=== PATIENT | male | born 1995 | race Caucasian/White ===

== ENCOUNTER 2024-10-09 08:48 | Emergency (ER) | payer BC, OTHER ==
[2024-10-09 09:05] VITALS: TEMP 97.9
--- NOTE | 2024-10-09 09:18 | ERPHSYRPT ---
- History of Present Illness Time Seen by Provider: 10/09/24 09:18 Source: patient Exam Limitations: no limitations Patient Subjective Stated Complaint: C/O right shoulder pain/injury. States he was working out approx one week ago and heard and felt something pop. States a ttempted to go to the walk in ortho clinic this am but it is closed. Triage Nursing Assessment: Patient ambulated back to ER without difficulties. He is alert and oriented. No SOB. Skin tone normal. Did not range due to pain when lifting arm. Physician History: This is a right-handed 29-year-old white male patient who presents to the emergency department with complaint of right shoulder pain. Approximately 1 week ago he was using the benchpress and had a little heavier weight than typical for him when he was working out. He felt a pop. In the next several days has had pain in the right shoulder area. He was having trouble raising his right arm. That is a little better but he still has a discomfort. Patient has no known drug allergies and he takes no medications chronically. Method of Injury: sports injury Quality: aching Severity of Pain-Max: mild (To moderate) Severity of Pain-Current: mild (With movement and raising of the right shoulder) Extremities Pain Location: shoulder: right Modifying Factors: Improves With: movement Associated Symptoms: none Allergies/Adverse Reactions: No Known Drug Allergies Allergy (Verified 10/09/24 08:55) Hx Tetanus, Diphtheria Vaccination/Date Given: Yes Hx Influenza Vaccination/Date Given: No Immunizations Up to Date: Yes Travel Risk - International Travel Have you traveled outside of the country in past 3 weeks: No - Emerging Infectious Disease Are you exhibiting symptoms associated with any current EIDs: No - Review of Systems Constitutional: No Symptoms Eyes: No Symptoms Ears, Nose, & Throat: No Symptoms Respiratory: No Symptoms Cardiac: No Symptoms Abdominal/Gastrointestinal: No Symptoms Genitourinary Symptoms: No Symptoms Musculoskeletal: Injury (Right shoulder with lifting weights) Skin: No Symptoms Neurological: No Symptoms Psychological: No Symptoms Endocrine: No Symptoms Hematologic/Lymphatic: No Symptoms Immunological/Allergic: No Symptoms All Other Systems: Reviewed and Negative - Past Medical History Pertinent Past Medical History: Yes Psycho-Social History: Attention Deficit Disorder - Past Surgical History Past Surgical History: No - Social History Smoking Status: Never smoker Exposure to second hand smoke: No Drug Use: none - Social Determinants of Health Will the patient participate in the screening: Yes Do you worry about a steady place to live?: No Do you have any problems with any of the following?: No known problems In the past 12 months,have you had to go without utilities?: No Transportation Issues: No Has anyone in your support network made you feel unsafe?: No Have you or anyone in your house had to go without enough: No - Nursing Vital Signs Nursing Vital Signs: Initial Vital Signs Temperature 97.9 F 10/09/24 08:56 Pulse Rate 90 10/09/24 08:56 Respiratory Rate 20 10/09/24 08:56 Blood Pressure 121/99 10/09/24 08:56 O2 Sat by Pulse Oximetry 100 10/09/24 08:56 Pain Scale Pain Intensity 5 - Physical Exam General Appearance: no apparent distress, alert, anxiety Eyes, Ears, Nose, Throat Exam: normal ENT inspection, moist mucous membranes Neck Exam: normal inspection, non-tender, supple, full range of motion Cardiovascular/Respiratory Exam: chest non-tender, no respiratory distress Abdominal Exam: non-tender Back Exam: normal inspection, normal range of motion, No CVA tenderness, No vertebral tenderness Shoulder Exam: normal inspection, no evidence of injury, normal ROM, soft tissue tenderness (When raising and abducting right shoulder) Elbow/Forearm Exam: normal inspection, non-tender, no evidence of injury, normal ROM Wrist Exam: normal inspection, non-tender, no evidence of injury, normal ROM Hand Exam: normal inspection, non-tender, no evidence of injury, normal ROM Neuro/Tendon Exam: normal sensation, normal motor functions, normal tendon functions, responds to pain, no evidence tendon injury Mental Status Exam: alert, oriented x 3, cooperative Skin Exam: normal color, warm, dry SpO2 Interpretation: normal SpO2: 100 O2 Delivery: Room Air - Course Nursing assessment & vital signs reviewed: Yes Ordered Tests: Active Orders 24 hr Category Date Time Status SHOULDER Stat Exams 10/09/24 09:20 Taken - Progress Progress: unchanged, pain not gone completely Progress Note: 10/09/24 09:42 My medical decision making and the assignment of low complexity to this sukhjinder ent's medical issue today is based on review of the patient's past medical history, review of the patient's medication list, review of the patient's drug allergy list, history present illness and physical findings on examination. The work up includes x-ray of the patient's right shoulder. Differential diagnosis includes but is not limited to right shoulder strain, right shoulder dislocation, right shoulder fracture I interpreted the preliminary report of the patient's right shoulder x-ray. I do not appreciate an acute fracture or dislocation. Counseled pt/family regarding: diagnosis, need for follow-up, rad results Medical Desision Making - Diagnostic Testing Diagnostic test were ordered, analyzed, and reviewed by me: Yes Radiological Interpretation: Interpreted by me - Risk of complications The pt has a mod risk of morbidity or mortality based on: Need for prescription drug management - Departure Departure Disposition: Home Clinical Impression: Right shoulder strain Condition: Stable Critical Care Time: No Additional Instructions: Alternate ice and heat to tender area of the right shoulder. Take your medicine as prescribed. May also add Tylenol for pain control. Stop lifting weights. May restart at very low weights once you have no pain in the right shoulder. Advance slowly. If your pain recurs after it has resolved and you begin lifting again, you should follow-up with [facility] orthopedic clinic. It is open Tuesday through Tuesday 8 AM to 10 AM. It is a walk-in clinic and you do not need to have an appointment Prescriptions: Prednisone 10 mg [Deltasone 10 mg] 10 mg PO TID #12 tablet Orphenadrine Citrate 100 mg [Norflex 100 MG Tablet] 100 mg PO BID #10 tab
--- NOTE | 2024-10-09 09:50 | XRAY ---
Indication: Lifting injury one week ago. Comparison: None 3 view right shoulder obtained. No bony, articular, or soft tissue abnormalities.
[2024-10-09 09:59] VITALS: RESP 18
[2024-10-09 10:10] VITALS: BP 131/89; PULSE 76; O2SAT 99
== END 2024-10-09 10:05 | disposition home or self-care (01) ==
LOC: ED 08:48
DX: S46.911A Strain of unspecified muscle, fascia and tendon at shoulder and upper arm level, right arm, initial encounter (principal); X50.0XXA Overexertion from strenuous movement or load, initial encounter; Y93.B9 Activity, other involving muscle strengthening exercises; Z79.52 Long term (current) use of systemic steroids; Z79.899 Other long term (current) drug therapy
CPT/HCPCS: 73030; 99282; 99284